=== PATIENT | male | born 1955 | race Caucasian/White ===

== ENCOUNTER 2016-09-15 15:04 | Emergency (ER) | payer SELFPAY ==
[~2016-09-15] VITALS: Wt 81.0 kg
[2016-09-15 17:57] VITALS: BP 168/100; PULSE 82; RESP 20
== END 2016-09-15 18:55 | disposition left against medical advice (07) ==
LOC: E/R 15:04
DX: Z53.21 Procedure and treatment not carried out due to patient leaving prior to being seen by health care provider (principal)